=== PATIENT | male | born 1995 | race African-American/Black ===

== ENCOUNTER 2017-12-15 01:02 | Emergency (ER) | payer OTHER ==
[2017-12-15 01:06] VITALS: BP 120/81; PULSE 65; RESP 16; TEMP 98.2
--- NOTE | 2017-12-15 01:23 | ED ---
Lower Extremity Injury HPI - General Chief Complaint: Extremity Injury, Lower Stated Complaint: ANKLE INJURY Time Seen by Provider: 12/15/17 01:07 Source: patient, RN notes reviewed Mode of arrival: wheelchair Limitations: no limitations - History of Present Illness Initial Comments: This is a 22-year-old male who presents to the emergency department chief complaint of right ankle injury. Patient states that at 345 this afternoon he was playing bascule. He states that he tripped on a curb and his ankle rolled. Patient complains of pain to the medial aspect of his right ankle. He states he was able to get up immediately and has been bearing weight and ambulating. Denies any other injuries or trauma. Denies fevers or chills, chest pain or breath, abdominal pain, nausea or vomiting, numbness or tingling. - Related Data Home Medications Medication Instructions Recorded Confirmed Methylphenidate HCl [Concerta] 72 mg PO DAILY 06/07/14 06/07/14 Allergies Allergy/AdvReac Type Severity Reaction Status Date / Time No Known Allergies Allergy Verified 06/07/14 20:38 Review of Systems ROS Statement: Those systems with pertinent positive or pertinent negative responses have been documented in the HPI. ROS Other: All systems not noted in ROS Statement are negative. Past Medical History Past Medical History: Asthma Additional Past Medical History / Comment(s): encopresis History of Any Multi-Drug Resistant Organisms: None Reported Past Surgical History: No Surgical Hx Reported Past Psychological History: ADD/ADHD Smoking Status: Never smoker Past Alcohol Use History: None Reported Past Drug Use History: None Reported General Exam - General Exam Comments Initial Comments: General: Awake and alert, well-developed; in no apparent distress. HEENT: Head atraumatic, normocephalic. Pupils are equal, round and reactive to light. Extraocular movements intact. Oropharynx moist without erythema or exudate. Neck: Supple. Normal ROM. Cardiovascular: Regular rate and rhythm. No murmurs, rubs or gallops. Chest symmetrical. Respiratory: Lungs clear to auscultation bilaterally. No wheezes, rales or rhonchi. Normal respiratory effort with no use of accessory muscles. Musculoskeletal: Normal range motion of the right ankle. There is tenderness just distal to the medial malleolus. No lateral or medial malleolus tenderness. No obvious gross deformities. No ecchymosis, swelling or erythema noted. Sensation is intact. Pedal pulses are 2+ equal and palpable bilaterally. Skin: Fifty-Six, warm and dry without rashes or lesions. Neurological: Alert and oriented x3. CN II-XII grossly intact. Speech is fluent and answers are appropriate. No focal neuro deficits. Psychiatric: Normal mood and affect. No overt signs of depression or anxiety noted. Limitations: no limitations Course Vital Signs 12/15/17 01:04 Temperature 98.2 F Pulse Rate 65 Respiratory 16 Rate Blood Pressure 120/81 O2 Sat by Pulse 100 Oximetry Medical Decision Making - Medical Decision Making This is a 22-year-old male who presents to the emergency department with chief complaint of right ankle injury. Tenderness to palpation of medial aspect of the ankle. No swelling, ecchymosis or obvious gross deformities noted. Patient is bearing weight and ambulating normally. X-ray was obtained and revealed no acute abnormalities. Patient likely suffering from an ankle sprain. Recommend rest, ice, elevation and ibuprofen or Tylenol as needed for pain. Vital signs are stable and patient is in no acute distress. He will be discharged home at this time. All questions answered. Patient is provided with Aircast. - Radiology Data Radiology results: report reviewed X-ray right ankle impression: Negative right ankle exam. Disposition Clinical Impression: Ankle sprain and strain Disposition: HOME SELF-CARE Condition: Good Instructions: Ankle Sprain (ED) Additional Instructions: Please rest, ice and wear Aircast while ambulating. May take ibuprofen or Tylenol as needed for pain. Please follow up with primary care provider within 1-2 days. Return to emergency department if symptoms should worsen or any concerns arise. Is patient prescribed a controlled substance at d/c from ED?: No Referrals: None,Stated [Primary Care Provider] - 1-2 days Time of Disposition: 01:47
--- NOTE | 2017-12-15 01:40 | XR ---
EXAMINATION TYPE: XR ankle complete RT DATE OF EXAM: 12/15/2017 COMPARISON: NONE HISTORY: Twisting injury TECHNIQUE: 3 views FINDINGS: Ankle mortise is anatomic. I see no fracture nor dislocation. Joint spaces are normal. IMPRESSION: Negative right ankle exam
== END 2017-12-15 02:02 | disposition home or self-care (01) ==
LOC: EC 01:02
DX: S93.401A Sprain of unspecified ligament of right ankle, initial encounter (principal); S96.911A Strain of unspecified muscle and tendon at ankle and foot level, right foot, initial encounter; F90.9 Attention-deficit hyperactivity disorder, unspecified type; Z79.899 Other long term (current) drug therapy; X50.1XXA Overexertion from prolonged static or awkward postures, initial encounter; Y93.67 Activity, basketball
CPT/HCPCS: 99283; 73610; L4350